=== PATIENT | female | born 1945 | race Caucasian/White ===

== ENCOUNTER 2017-06-17 13:23 | Emergency (ER) | payer OTHER ==
[~2017-06-17] VITALS: Ht 162.6 cm; Wt 77.5 kg
[~2017-06-17 13:23] MED LIST: ACTOS45 MG PO; AGGRENOX1 CAPSULE PO; AMLODIPINE BESYL5 MG PO; ASPIRIN-DIPYRI1 EACH PO; ASPIRIN81 M2 PO; ATENOLOL100 MG PO; ATORVASTATIN CA40 MG PO; AZOR 10/20 M1 TABLET PO; BENAZEPRIL HCL40 MG PO; CLOPIDOGREL75 MG PO; HYZAAR 100-21 TABLET PO; JANUVIA100 MG PO; LO-DOSE ASPIRIN81 M1 PO; LOSARTAN POTAS100 MG PO; LOSARTAN-HCTZ1 EAC1 PO; METFORMIN HCL1000 MG PO; NORVASC5 MG PO; PIOGLITAZONE HC45 MG PO; PLAVIX75 MG PO; PRAVASTATIN SOD80 MG PO; TYLENOL REGULA325 MG PO
[2017-06-17 13:41] LABS: HEMATOCRIT 37.2 % (36.0-46.0); MCH 27.2 PG (29.0-34.0); MCHC 31.2 G/DL (30.0-36.0); MCV 87.1 FL (83-99); MEAN PLAT.VOLUME 11.4 uM^3 (9.5-12.4); PLATELET COUNT 192 K/uL (156-360); RBC DIS.WIDTH-CV 15.7 % (11.8-14.6); RBC DIS.WIDTH-SD 49.9 % (39-53); RED BLOOD COUNT 4.27 M/uL (3.80-5.20); WHITE BLOOD COUNT 7.6 K/uL (4.1-10.2)
[2017-06-17 13:55] LABS: CHLORIDE 105 mEq/L (99-109); POTASSIUM 4.6 mEq/L (3.7-5.4); SODIUM 141 mEq/L (136-147)
[2017-06-17 13:56] LABS: GLUCOSE 109 mg/dL (70-99)
[2017-06-17 13:58] LABS: ANION GAP 8 MEQ/L (2-14)
[2017-06-17 14:00] LABS: GFR ESTIMATE (CALCULATED) 43 mL/min/
[2017-06-17 14:01] LABS: UREA NITROGEN (BUN) 26 mg/dL (9-23)
[2017-06-17 14:07] LABS: TROP-I INTERPRETATION NEGATIVE; TROPONIN-I < 0.01 ng/mL (0.0-0.30)
[2017-06-17] MEDS ORDERED: SALINE NASAL SP45 ML BOTH NARES (14:43)
[2017-06-17] MEDS ORDERED: MUCINEX DM ER1 EACH PO (14:43)
[2017-06-17] MEDS ORDERED: PROAIR HFA8.5 GM IH (14:58)
[2017-06-17 15:51] VITALS: BP 0/0
== END 2017-06-17 15:54 | disposition home or self-care (01) ==
LOC: EME 13:23
DX: R05 Cough (principal); E11.9 Type 2 diabetes mellitus without complications; I10 Essential (primary) hypertension; I69.392 Facial weakness following cerebral infarction; I69.328 Other speech and language deficits following cerebral infarction; Z79.84 Long term (current) use of oral hypoglycemic drugs
CPT/HCPCS: 71020; 80048; 84484; 85027; 93005; 99281; 99284

== ENCOUNTER 2017-06-27 14:33 | Inpatient (IN) | payer OTHER ==
[~2017-06-27] VITALS: Ht 162.6 cm; Wt 77.9 kg
[~2017-06-27 14:33] MED LIST changes: +MUCINEX DM ER1 EACH PO; +PROAIR HFA8.5 GM IH; +SALINE NASAL SP45 ML BOTH NARES
[2017-06-27 14:55] LABS: HEMATOCRIT 35.1 % (36.0-46.0); MCH 27.4 PG (29.0-34.0); MCHC 31.6 G/DL (30.0-36.0); MCV 86.7 FL (83-99); MEAN PLAT.VOLUME 11.3 uM^3 (9.5-12.4); PLATELET COUNT 201 K/uL (156-360); RBC DIS.WIDTH-SD 51.1 % (39-53); RED BLOOD COUNT 4.05 M/uL (3.80-5.20); WHITE BLOOD COUNT 7.8 K/uL (4.1-10.2)
[2017-06-27 15:01] LABS: PROTHROMBIN TIME 10.6 SEC (10.2-12.9)
[2017-06-27 15:03] LABS: CHLORIDE 103 mEq/L (99-109); POTASSIUM 3.9 mEq/L (3.7-5.4); SODIUM 140 mEq/L (136-147)
[2017-06-27 15:04] LABS: GLUCOSE 128 mg/dL (70-99); PTT 39.5 SEC (25-37)
[2017-06-27 15:06] LABS: ANION GAP 10 MEQ/L (2-14)
[2017-06-27 15:08] LABS: GFR ESTIMATE (CALCULATED) 40 mL/min/
[2017-06-27 15:09] LABS: UREA NITROGEN (BUN) 27 mg/dL (9-23)
[2017-06-27] MEDS ORDERED: PLAVIX75 MG PO (21:09)
[2017-06-27] MEDS ORDERED: LIPITOR40 MG PO (21:10)
[2017-06-27] MEDS ORDERED: TENORMIN100 MG PO (21:11)
[2017-06-27] MEDS ORDERED: LOSARTAN-HCTZ1 EAC1 PO (21:12)
[2017-06-27] MEDS ORDERED: PIOGLITAZONE HC45 MG PO (21:13)
[2017-06-27 22:40] VITALS: BP 150/65
[2017-06-27 22:47] VITALS: BP 150/65
[2017-06-28 00:47] LABS: POINT-OF-CARE METER ID UU14188577
[2017-06-28 03:50] VITALS: BP 95/46
[2017-06-28 04:03] VITALS: BP 100/50
[2017-06-28 05:44] VITALS: BP 108/54
[2017-06-28 07:03] LABS: HEMATOCRIT 31.1 % (36.0-46.0); MCH 26.8 PG (29.0-34.0); MCHC 30.9 G/DL (30.0-36.0); MCV 86.9 FL (83-99); MEAN PLAT.VOLUME 11.6 uM^3 (9.5-12.4); PLATELET COUNT 183 K/uL (156-360); RBC DIS.WIDTH-CV 15.9 % (11.8-14.6); RBC DIS.WIDTH-SD 50.9 % (39-53); RED BLOOD COUNT 3.58 M/uL (3.80-5.20); WHITE BLOOD COUNT 8.5 K/uL (4.1-10.2)
[2017-06-28 07:37] LABS: ANION GAP 8 MEQ/L (2-14); CHLORIDE 106 MEQ/L (99-109); GFR ESTIMATE (CALCULATED) 47 mL/min/; GLUCOSE 88 mg/dL (70-99); POTASSIUM 3.9 MEQ/L (3.7-5.4); SAMPLE HEMOLYSIS CHECK 0; SAMPLE ICTERIC CHECK 0; SAMPLE LIPEMIA CHECK 0; SODIUM 141 MEQ/L (136-147); UREA NITROGEN (BUN) 25 mg/dL (9-23)
[2017-06-28 07:47] VITALS: BP 105/52
[2017-06-28 11:30] VITALS: BP 120/58
[2017-06-28 15:27] VITALS: BP 99/51
[2017-06-28 20:18] LABS: POINT-OF-CARE METER ID UU14117124
[2017-06-29 00:08] VITALS: BP 113/55
[2017-06-29 00:35] LABS: POINT-OF-CARE METER ID UU14188577
[2017-06-29 06:45] LABS: EOSINOPHIL (%) 3.1 % (0-5); EOSINOPHIL COUNT 0.2 K/uL (0-0.3); HEMATOCRIT 31.6 % (36.0-46.0); IMMATURE GRANULOCYTE (%) 0.4 % (0.0-0.7); INSTRUMENT ABS NEUTROPHIL CT 3.8 K/uL; LYMPHOCYTE COUNT 2.2 K/uL (1.0-2.8); MCH 28.1 PG (29.0-34.0); MCV 87.8 FL (83-99); MEAN PLAT.VOLUME 11.6 uM^3 (9.5-12.4); MONOCYTE COUNT 0.5 K/uL (0-0.8); NEUTROPHIL (%) 55.9 % (45-76); NEUTROPHIL COUNT 3.8 K/uL (1.8-6.4); PLATELET COUNT 165 K/uL (156-360); RBC DIS.WIDTH-SD 51.7 % (39-53); WHITE BLOOD COUNT 6.8 K/uL (4.1-10.2)
[2017-06-29 07:16] LABS: ANION GAP 6 MEQ/L (2-14); CHLORIDE 106 MEQ/L (99-109); GFR ESTIMATE (CALCULATED) 43 mL/min/; GLUCOSE 87 mg/dL (70-99); POTASSIUM 4.5 MEQ/L (3.7-5.4); SAMPLE HEMOLYSIS CHECK 0; SAMPLE ICTERIC CHECK 0; SAMPLE LIPEMIA CHECK 0; SODIUM 143 MEQ/L (136-147); UREA NITROGEN (BUN) 22 mg/dL (9-23)
[2017-06-29] MEDS ORDERED: AMLODIPINE BESYL5 MG PO (07:35)
[2017-06-29 08:20] VITALS: BP 148/67
== END 2017-06-29 11:08 | disposition home or self-care (01) | DRG 86 ==
LOC: EME 14:33 → 3EAST 20:13 → EDOF 20:13 → ENRESERV 20:15 → 3EAST 22:31
PROVIDERS: Hospitalist; Physician Assistant Medical
DX: S06.5X0A Traumatic subdural hemorrhage without loss of consciousness, initial encounter (principal); W01.0XXA Fall on same level from slipping, tripping and stumbling without subsequent striking against object, initial encounter; I69.354 Hemiplegia and hemiparesis following cerebral infarction affecting left non-dominant side; R47.81 Slurred speech; E11.9 Type 2 diabetes mellitus without complications; I10 Essential (primary) hypertension; E78.5 Hyperlipidemia, unspecified; Z79.84 Long term (current) use of oral hypoglycemic drugs
CPT/HCPCS: 70150; 70450; 80048; 82948; 85025; 85027; 85610; 85730; 99281; 99285; J3010; J7030; S0028

== ENCOUNTER 2018-02-21 13:47 | Inpatient (IN) | payer OTHER ==
[~2018-02-21] VITALS: Ht 157.5 cm; Wt 47.5 kg
[~2018-02-21 13:47] MED LIST changes: +LIPITOR40 MG PO; +TENORMIN100 MG PO
[2018-02-21 14:31] LABS: HEMATOCRIT 40.9 % (36.0-46.0); HEMOGLOBIN 12.9 G/DL (11.9-15.5); MCH 28.2 PG (29.0-34.0); MCHC 31.5 G/DL (30.0-36.0); MCV 89.5 FL (83-99); PLATELET COUNT 255 K/uL (156-360); RBC DIS.WIDTH-CV 14.6 % (11.8-14.6); RBC DIS.WIDTH-SD 47.7 % (39-53); RED BLOOD COUNT 4.57 M/uL (3.80-5.20); WHITE BLOOD COUNT 8.7 K/uL (4.1-10.2)
[2018-02-21 14:44] LABS: CHLORIDE 102 mEq/L (99-109); POTASSIUM 3.7 mEq/L (3.7-5.4); SODIUM 146 mEq/L (136-147)
[2018-02-21 14:45] LABS: GLUCOSE 131 mg/dL (70-99)
[2018-02-21 14:49] LABS: CREATININE 0.9 mg/dL (0.6-1.3); GFR ESTIMATE (CALCULATED) > 59 mL/min/
[2018-02-21 14:50] LABS: UREA NITROGEN (BUN) 18 mg/dL (9-23)
[2018-02-21 17:06] LABS: APPEARANCE SL.HAZY ((CLEAR)); BILIRUBIN NEGATIVE; BLOOD NEGATIVE; COLOR YELLOW ((YELLOW)); GLUCOSE (STRIP) NEGATIVE; KETONES 5; LEUKOCYTES MODERATE; NITRITE NEGATIVE; PROTEIN (STRIP) 100; SPECIFIC GRAVITY 1.023 (1.000-1.030)
[2018-02-21 17:09] LABS: BACTERIA RARE /HPF; CALCIUM OXALATE CRYSTALS 1+ /HPF; EPITHELIAL CELLS 1+ /HPF; MUCUS 1+ /LPF; RED BLOOD CELLS 0-5 /HPF (0-5); UCUL ADDED? YES
[2018-02-21] MEDS ORDERED: ADULT ASPIRIN R81 MG PO (21:15)
[2018-02-21] MEDS ORDERED: AMLODIPINE BESYL5 MG PO (21:15)
[2018-02-21] MEDS ORDERED: PLAVIX75 MG PO (21:15)
[2018-02-21] MEDS ORDERED: REMERON30 M2 PO (21:15)
[2018-02-21 21:45] LABS: HDL CHOLESTEROL 47 MG/DL (Desirable>=50); LDL CHOLESTEROL 79 mg/dL (Desirable<100); NON-HDL CHOLESTEROL 102 mg/dL (Desirable<160); TOTAL CHOLESTEROL 149 mg/dL (Desirable<200); TRIGLYCERIDES 114 MG/DL (Normal: <150)
[2018-02-21 22:49] LABS: THYROTROPIN (TSH) 1.8 MIU/L (0.4-5.5)
[2018-02-21 22:59] LABS: FOLIC ACID (FOLATE) 6.4 NG/ML (5.0-22.0)
[2018-02-21 23:09] VITALS: BP 153/80
[2018-02-22 03:45] VITALS: BP 138/75
[2018-02-22 06:26] LABS: BASOPHIL (%) 0.9 % (0-1); BASOPHIL COUNT 0.1 K/uL (0-0.1); EOSINOPHIL (%) 2.7 % (0-5); EOSINOPHIL COUNT 0.2 K/uL (0-0.3); HEMATOCRIT 33.3 % (36.0-46.0); IMMATURE GRANULOCYTE (%) 0.3 % (0.0-0.7); LYMPHOCYTE (%) 27.2 % (15-42); LYMPHOCYTE COUNT 1.9 K/uL (1.0-2.8); MCV 89.8 FL (83-99); MONOCYTE (%) 7.5 % (3-12); MONOCYTE COUNT 0.5 K/uL (0-0.8); NEUTROPHIL (%) 61.4 % (45-76); NEUTROPHIL COUNT 4.3 K/uL (1.8-6.4); PLATELET COUNT 217 K/uL (156-360); RBC DIS.WIDTH-CV 14.6 % (11.8-14.6); RBC DIS.WIDTH-SD 48.5 % (39-53); RED BLOOD COUNT 3.71 M/uL (3.80-5.20)
[2018-02-22 06:37] LABS: ALBUMIN 3.1 G/DL (3.2-4.8); ALKALINE PHOSPHATASE 32 IU/L (3-129); ALT (GPT) 7 IU/L (3-49); AST (GOT) 12 IU/L (2-34); CHLORIDE 106 MEQ/L (99-109); CREATININE 0.7 MG/DL (0.6-1.3); GFR ESTIMATE (CALCULATED) > 59 mL/min/; POTASSIUM 3.5 MEQ/L (3.7-5.4); SODIUM 146 MEQ/L (136-147); TOTAL BILIRUBIN 0.5 MG/DL (0.0-1.0); TOTAL PROTEIN 5.3 G/DL (6.4-8.3); UREA NITROGEN (BUN) 14 mg/dL (9-23)
[2018-02-22 06:41] LABS: GLUCOSE 89 mg/dL (70-99)
[2018-02-22 08:11] VITALS: BP 158/72
[2018-02-22 10:11] LABS: HEMOGLOBIN A1c (GLYCOHEMOGLOB) 5.2 % (Below 5.7)
[2018-02-22 11:57] VITALS: BP 152/72
[2018-02-22 14:55] LABS: HEMOGLOBIN 10.7 G/DL (11.9-15.5); MCV 90.7 FL (83-99)
[2018-02-22 17:06] VITALS: BP 148/74
[2018-02-22 21:14] VITALS: BP 158/74
[2018-02-23] VITALS: BP 154/84
[2018-02-23 04:00] VITALS: BP 160/87
[2018-02-23 06:24] LABS: HEMATOCRIT 32.4 % (36.0-46.0); HEMOGLOBIN 9.9 G/DL (11.9-15.5); MCH 27.4 PG (29.0-34.0); MCHC 30.6 G/DL (30.0-36.0); MCV 89.8 FL (83-99); PLATELET COUNT 195 K/uL (156-360); RBC DIS.WIDTH-CV 14.6 % (11.8-14.6); RBC DIS.WIDTH-SD 48.3 % (39-53); RED BLOOD COUNT 3.61 M/uL (3.80-5.20); WHITE BLOOD COUNT 10.2 K/uL (4.1-10.2)
[2018-02-23 06:57] LABS: CHLORIDE 105 MEQ/L (99-109); CREATININE 0.6 MG/DL (0.6-1.3); GFR ESTIMATE (CALCULATED) > 59 mL/min/; GLUCOSE 78 mg/dL (70-99); POTASSIUM 3.9 MEQ/L (3.7-5.4); SODIUM 142 MEQ/L (136-147); UREA NITROGEN (BUN) 9 mg/dL (9-23)
[2018-02-23 07:12] VITALS: BP 134/80
[2018-02-23 07:27] LABS: C DIFF TOXIN NEGATIVE (NEGATIVE)
[2018-02-23 12:09] VITALS: BP 132/74
[2018-02-23 15:04] VITALS: BP 158/69
[2018-02-23] MEDS ORDERED: AMLODIPINE BESYL5 MG PO (15:06)
== END 2018-02-23 17:33 | disposition home health service (06) | DRG 57 ==
LOC: EME 13:47 → 5SOUTH 19:42 → EDOF 19:42 → ENRESERV 19:43 → 5SOUTH 22:58 → ENPENDDIS 02-23 15:11 → 5SOUTH 02-23 17:33
PROVIDERS: Emergency Medicine; Family Medicine; Internal Medicine; Physician Assistant Medical
DX: G70.00 Myasthenia gravis without (acute) exacerbation (principal); G12.21 Amyotrophic lateral sclerosis; R53.1 Weakness; E46 Unspecified protein-calorie malnutrition; D64.9 Anemia, unspecified; E11.9 Type 2 diabetes mellitus without complications; E78.5 Hyperlipidemia, unspecified; E87.6 Hypokalemia; I10 Essential (primary) hypertension; R45.84 Anhedonia; Z68.1 Body mass index [BMI] 19.9 or less, adult; I69.391 Dysphagia following cerebral infarction; R13.10 Dysphagia, unspecified; I69.328 Other speech and language deficits following cerebral infarction; I69.393 Ataxia following cerebral infarction; Z79.82 Long term (current) use of aspirin; Z79.02 Long term (current) use of antithrombotics/antiplatelets
CPT/HCPCS: 70450; 70551; 71046; 80048; 80053; 80061; 81003; 82607; 82746; 82948; 83036; 84238 90; 84443; 85014; 85018; 85025; 85027; 87040; 87086; 87493; 92522 GN; 92526 GN; 92610 GN; 93005; 93306; 93880; 95819; 99202; 99281; 99285; G8999 GN; G9158 GN; G9186 GN; J0696; J1644; J1815; J3480; J7030

== ENCOUNTER 2018-03-15 12:20 | Emergency (ER) | payer OTHER ==
[~2018-03-15] VITALS: Ht 162.6 cm; Wt 39.6 kg
[~2018-03-15 12:20] MED LIST changes: +ADULT ASPIRIN R81 MG PO; +REMERON30 M2 PO
[2018-03-15 12:57] LABS: BASOPHIL (%) 0.4 % (0-1); EOSINOPHIL (%) 0 % (0-5); HEMATOCRIT 43.7 % (36.0-46.0); HEMOGLOBIN 13.7 G/DL (11.9-15.5); IMMATURE GRANULOCYTE (%) 0.4 % (0.0-0.7); LYMPHOCYTE (%) 7.5 % (15-42); LYMPHOCYTE COUNT 0.8 K/uL (1.0-2.8); MCH 28.2 PG (29.0-34.0); MCHC 31.4 G/DL (30.0-36.0); MCV 90.1 FL (83-99); MONOCYTE (%) 5.1 % (3-12); MONOCYTE COUNT 0.6 K/uL (0-0.8); NEUTROPHIL (%) 86.6 % (45-76); NEUTROPHIL COUNT 9.3 K/uL (1.8-6.4); PLATELET COUNT 217 K/uL (156-360); RBC DIS.WIDTH-CV 14.5 % (11.8-14.6); RBC DIS.WIDTH-SD 47.7 % (39-53); RED BLOOD COUNT 4.85 M/uL (3.80-5.20); WHITE BLOOD COUNT 10.7 K/uL (4.1-10.2)
[2018-03-15 13:03] LABS: ALBUMIN 3.9 g/dL (3.2-4.8); CHLORIDE 100 mEq/L (99-109); POTASSIUM 3.6 mEq/L (3.7-5.4); SODIUM 148 mEq/L (136-147)
[2018-03-15 13:05] LABS: GLUCOSE 171 mg/dL (70-99); TOTAL PROTEIN 6.9 g/dL (6.4-8.3)
[2018-03-15 13:07] LABS: TOTAL BILIRUBIN 0.5 mg/dL (0.0-1.0)
[2018-03-15 13:09] LABS: ALKALINE PHOSPHATASE 47 IU/L (3-129); CREATININE 0.9 mg/dL (0.6-1.3); GFR ESTIMATE (CALCULATED) > 59 mL/min/
[2018-03-15 13:10] LABS: UREA NITROGEN (BUN) 34 mg/dL (9-23)
[2018-03-15 13:11] LABS: AST (GOT) 13 IU/L (2-34)
[2018-03-15 13:12] LABS: ALT (GPT) 8 IU/L (3-49)
[2018-03-15 13:24] LABS: APPEARANCE CLOUDY ((CLEAR)); BILIRUBIN NEGATIVE; BLOOD SMALL; COLOR AMBER ((YELLOW)); GLUCOSE (STRIP) NEGATIVE; KETONES 20; LEUKOCYTES LARGE; NITRITE NEGATIVE; PROTEIN (STRIP) 100; SPECIFIC GRAVITY 1.027 (1.000-1.030)
[2018-03-15 13:44] LABS: EPITHELIAL CELLS 1+ /HPF; MUCUS NONE SEEN /LPF; RED BLOOD CELLS RARE /HPF (0-5); WHITE BLOOD CELLS TNTC /HPF (0-5)
[2018-03-15 13:45] LABS: BACTERIA 1+ /HPF; UCUL ADDED? YES
[2018-03-15] MEDS ORDERED: KEFLEX250 MG/5 M PO (14:26)
[2018-03-15 16:19] VITALS: BP 162/80
== END 2018-03-15 16:20 | disposition home or self-care (01) ==
LOC: EME 12:20
PROVIDERS: Emergency Medicine
DX: N39.0 Urinary tract infection, site not specified (principal); G12.21 Amyotrophic lateral sclerosis; I69.922 Dysarthria following unspecified cerebrovascular disease; I10 Essential (primary) hypertension; E11.9 Type 2 diabetes mellitus without complications; Z79.02 Long term (current) use of antithrombotics/antiplatelets; Z79.82 Long term (current) use of aspirin; Z79.84 Long term (current) use of oral hypoglycemic drugs; Z87.440 Personal history of urinary (tract) infections
CPT/HCPCS: 80053; 81003; 85025; 87086; 99281; 99285; J0696; J7030